=== PATIENT | male | born 1980 | race Caucasian/White ===

== ENCOUNTER → 2020-03-06 12:38 | Outpatient (BNVA) | payer OTHER, SELFPAY | PROVIDERS: PCP Internal Medicine; Visit Provider Physician Assistant Medical | DX: S00.431A Contusion of right ear, initial encounter (principal); W20.8XXA Other cause of strike by thrown, projected or falling object, initial encounter | CPT/HCPCS: 12002; 99203 ==

== ENCOUNTER → 2020-03-08 15:16 | Outpatient (BNVA) | payer OTHER, SELFPAY | PROVIDERS: PCP Internal Medicine; Visit Provider Internal Medicine | DX: S00.431A Contusion of right ear, initial encounter (principal); W20.8XXA Other cause of strike by thrown, projected or falling object, initial encounter | CPT/HCPCS: 99213 ==

== ENCOUNTER → 2020-03-12 15:25 | Outpatient (BNVA) | payer OTHER, SELFPAY | PROVIDERS: PCP Internal Medicine; Visit Provider Internal Medicine | DX: S01.311A Laceration without foreign body of right ear, initial encounter (principal); W20.8XXA Other cause of strike by thrown, projected or falling object, initial encounter | CPT/HCPCS: 99212; 99213 ==

== ENCOUNTER → 2020-07-12 14:18 | Outpatient (BNVA) | payer OTHER, SELFPAY | PROVIDERS: PCP Internal Medicine; Visit Provider Internal Medicine | DX: S63.502A Unspecified sprain of left wrist, initial encounter (principal); X50.1XXA Overexertion from prolonged static or awkward postures, initial encounter | CPT/HCPCS: 29125; 99202 ==

== ENCOUNTER → 2020-07-15 11:15 | Outpatient (BNVA) | payer OTHER, SELFPAY | PROVIDERS: PCP Internal Medicine; Visit Provider Physician Assistant | DX: S63.502A Unspecified sprain of left wrist, initial encounter (principal); X50.1XXA Overexertion from prolonged static or awkward postures, initial encounter | CPT/HCPCS: 99213 ==

== ENCOUNTER → 2020-10-31 11:29 | Outpatient (BNVA) | payer OTHER, SELFPAY | PROVIDERS: PCP Internal Medicine; Visit Provider Physician Assistant Medical | DX: S00.212A Abrasion of left eyelid and periocular area, initial encounter (principal); X58.XXXA Exposure to other specified factors, initial encounter | CPT/HCPCS: 92002; 99203 ==

== ENCOUNTER → 2020-11-01 09:31 | Outpatient (BNVA) | payer OTHER, SELFPAY | PROVIDERS: PCP Internal Medicine; Visit Provider Physician Assistant Medical | DX: S05.02XA Injury of conjunctiva and corneal abrasion without foreign body, left eye, initial encounter (principal); X58.XXXA Exposure to other specified factors, initial encounter | CPT/HCPCS: 99213 ==

== ENCOUNTER → 2021-01-02 07:49 | Outpatient (BNVA) | payer OTHER, SELFPAY | PROVIDERS: PCP Internal Medicine; Visit Provider Internal Medicine | DX: M23.91 Unspecified internal derangement of right knee (principal) | CPT/HCPCS: 99203 ==

== ENCOUNTER → 2023-09-10 08:30 | Outpatient (BNV) | payer OTHER, SELFPAY | PROVIDERS: Visit Provider Psychiatry & Neurology Psychiatry | DX: F33.9 Major depressive disorder, recurrent, unspecified (principal); F43.10 Post-traumatic stress disorder, unspecified; F10.90 Alcohol use, unspecified, uncomplicated | CPT/HCPCS: 90792; 99213 ==

== ENCOUNTER 2023-09-23 08:30 | Outpatient (RCR) | payer OTHER, SELFPAY ==
[2023-09-10 10:42] VITALS: BP 112/78; PULSE 80; TEMP 36.4; BMI 31.2
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
--- NOTE | 2023-09-21 22:12 | HO.PHPPROGNO ---
Subjective Subjective Date of Service: 09/21/23 Reason For Visit: PTSD,anxiety Interim History: Patient reports starting on Abilify and has been taking the whole tablet for the past 3 nights. Denies any adverse effects. Says he is doing a little better...things are better at home too . He indicates that he and his have been making progress. He still has difficult morning, especially with the irritability. He has been trying utilize skills to navigate stress. Sleep has been better he is getting 6-7 hours at night. Also notes that irritability also a little better. He notes difficulties focusing on tasks. Denies any SI. Medication Compliance: Yes Side effects from medications: No Attending Groups: Yes Review of Systems Acute medical concerns: No Mental Status Exam Mental Status Exam Narrative: Alert, oriented, in no acute distress. Calm, withdrawn but cooperative. No psychomotor agitation or neurovegetative retardation. Eye contact intermittent Mood depressed, affect constricted. Speech normal. Thought process linear, coherent. Thought content related to stressors, +transient hopelessness, +passive SI, denies any intention, urge or plan to harm self. Denies any aggressive ideation or HI. No paranoia or delusional content elicited. No evidence of psychosis. Insight and judgment fair. Diagnostics Vital Signs (24Hr): BMI result Body Mass Index 31.2 Assessment & Plan Assessment & Plan (1) MDD (major depressive disorder), recurrent episode: Status: Acute Code(s): F33.9 - Major depressive disorder, recurrent, unspecified (2) PTSD (post-traumatic stress disorder): Status: Acute Code(s): F43.10 - Post-traumatic stress disorder, unspecified (3) Alcohol use disorder: Status: Acute Code(s): F10.90 - Alcohol use, unspecified, uncomplicated Plan continue aripiprazole 2 mg qhs continue Vivitrol continue other regular medications? Routine lab work ordered EKG, routine for baseline QTc for medication considerations UDS as indicated MassPat reviewed Continue to monitor Patient educated on: diagnosis, medication risk/benefits and substance abuse Informed Consent: understands Reason for contiued partial hosp. stay Substantial Risk for: inability to function, rapid decompensation and med/psych decompensation Certification I certify that partial hospital treatment is medically necessary due to the symptoms and problems resulting from the patient's mental illness and the failure to treat the patient at the partial hospital level of care would likely result in the patient requiring inpatient psychiatric care which could not be prevented at a less intensive level of care. Total time managing care of this patient today __30__ minutes. Discharge Plan Discharge Attending provider: Kortney Baptiste Medications: New aripiprazole 2 mg tablet 2 mg PO BEDTIME Qty: 30 0RF No Action bupropion HCl 150 mg tablet sustained-release 12 hr 150 mg PO DAILY venlafaxine 75 mg capsule,extended release 24hr 225 mg PO DAILY Rx Instructions: Take 3 capsules daily. sildenafil 50 mg tablet 50 mg PO DAILY PRN (Reason: Erectile Dysfunction) Rx Instructions: Daily one hour prior to sexual activity. naltrexone 50 mg tablet 50 mg PO DAILY trazodone 100 mg tablet 100 mg PO BEDTIME PRN (Reason: Insomnia) prazosin 2 mg capsule 4 mg PO BEDTIME Rx Instructions: Take two tabs at Bedtime. For nightmares. Do not take nights you plan to use Sildenafil Citrate hydroxyzine pamoate 25 mg capsule 25 mg PO TID PRN (Reason: Anxiety) fluoride (sodium) 1.1 % cream See Rx Instructions .ROUTE .COMPLEX Rx Instructions: [place] small amount twice a day. Print Language: [place]
--- NOTE | 2023-09-23 16:42 | HO.PHP ---
During D/C meeting with Doroteo at 1:00pm, pt expressed improvement in his overall mood, stated he felt he learned many coping skills and received a lot of support. Pt however, scored a 15 on his PHQ-9 at discharge, not improving from the 15 he scored upon admission. Upon further analysis and discussion, 2 of the pt's areas of increased scores were new areas and several of his previous high scores in select areas had lowered. When asked about specific details in areas he scored a 3 on the PHQ-9 such as sleep, and concentration, pt needed extended time to process what was being asked, then needed clarification and then need extended time to think about his answer. When prompted with questions about a possible past head trauma, pt revealed a fall when in the , acknowledged he failed to mention it to [facility] doctor and to OP provider and stated he never told anyone when it happened as well, never assessed for head trauma or concussion per pt report, despite the fall being singificant and leaving him stunned, ears ringing and neck pain that was never the same . Pt was encouraged to stay longer at [facility] to explore these new details, pt declined but agreed to return to [facility] if he felt symptoms worsen and no improve as medication reaches therapeutic dose, pt agreed. Pt also stated he would discuss these concerns with his OP providers and PCP, and bring up recent thoughts of possible ADHD symptoms as well that pt stated he also forgot to ask Dr. Baptiste about. Pt has a PCP appt on Wednesday, junior copywriter recommended pt ask for brain imaging scans due to lack of improvement in his anger, depression, poor memory and difficulty focusing and processing. Pt asked junior copywriter to call his to inform her of this conversation with details so she can remind him due to his issues with memory. At roughly 1:30 pm junior copywriter called pt's Caryl Lovelace to inform her of Doroteo's discharge plan and discussion, per pt's request. Caryl was very supportive and also asked for clarification on doses for Doroteo's medication. Caryl was encouraged to discuss the medication discharge plan with Doroteo and review the paperwork with him when he arrives home. Caryl reported she attends his appts per his request and expressed similar concerns over his symptoms. Appreciative for being contacted.
--- NOTE | 2023-09-23 17:37 | HO.PHP ---
Referral faxed to [facility] for OP therapy on 09/23/23.
--- NOTE | 2023-09-23 21:26 | P.PNPSP_ITS ---
Subjective Subjective Date of Service: 09/23/23 Reason For Visit: PTSD,anxiety Interim History: Patient seen for follow-up, anticipating discharge at the end of program today.? Reports no acute issues or concerns. Medication compliant, medications well- tolerated. Denies any adverse effects.? Mood is depressed, but has been more level, he has been utilizing better coping skills.?He is better able to take a break if he feels triggered and feels more incontrol, denies any AI or HI or SI. More future-oriented. He says at some point in the upcoming months he may need a letter stating he is totally disabled and unable to work. I inform him that I can write a letter that he was at the program and that he attended and at this time he was unable to work due to severity of his symptoms, however as for a letter attesting to his mental status months from now he should follow up with his outpatient office messenger helper, who will be seeing him regularly, to inquire about this. He is unsure whether a participation letter would be helpful, but says if he needs a letter regarding his participation in [facility] [place] he agrees to reach out and leave a message. EMail:[email or web address]. He endorses transient hopelessness but denies thoughts of harming self or others at this time. Denies any aggressive ideation or HI. Denies any paranoia or AH or VH. Sleep, appetite, energy stable. Medication Compliance: Yes Side effects from medications: No Attending Groups: Yes Review of Systems Acute medical concerns: No Mental Status Exam Mental Status Exam Narrative: Alert, oriented, in no acute distress. Calm, withdrawn but cooperative. No psychomotor agitation or neurovegetative retardation. Eye contact intermittent Mood depressed, affect constricted. Speech normal. Thought process linear, coherent. Thought content related to stressors, +transient hopelessness, denies any suicidal intention, urge or plan to harm self. Denies any aggressive ideation or HI. No paranoia or delusional content elicited. No evidence of psychosis. Insight and judgment fair but adequate. Diagnostics Vital Signs (24Hr): BMI result Body Mass Index 31.2 Assessment & Plan Assessment & Plan (1) MDD (major depressive disorder), recurrent episode: Status: Acute Code(s): F33.9 - Major depressive disorder, recurrent, unspecified (2) PTSD (post-traumatic stress disorder): Status: Acute Code(s): F43.10 - Post-traumatic stress disorder, unspecified (3) Alcohol use disorder: Status: Acute Code(s): F10.90 - Alcohol use, unspecified, uncomplicated Plan Discharge from [facility] continue aripiprazole 3.5-5 mg qhs cotninue Wellbutrin XL 150 mg qam continue venlafaxine 150 mg qd continue trazodone 100 mg qhs PRN sleep continue prazosin 4 mg qhs continue hydroxyzine 25 mg TID prn anxiety continue Vivitrol continue other regular medications? Routine lab work ordered but patient did not get this completed Refills sent to pharmacy Will defer further medication management to outpatient provider *Safety plan reviewed *Discharge diagnoses, treatment course, discharge plan have been reviewed with patient (including medication regime, medication management, potential side effects) as well as treatment rationale were also revisited Patient educated on: diagnosis, medication risk/benefits and substance abuse Informed Consent: understands Reason for contiued partial hosp. stay Substantial Risk for: stable for discharge and med/psych decompensation Certification I certify that partial hospital treatment is medically necessary due to the symptoms and problems resulting from the patient's mental illness and the failure to treat the patient at the partial hospital level of care would likely result in the patient requiring inpatient psychiatric care which could not be prevented at a less intensive level of care. Total time managing care of this patient today ____ minutes. Discharge Plan Discharge Attending provider: Kortney Baptiste Medications: New aripiprazole 2 mg tablet 2 mg PO BEDTIME Qty: 30 0RF aripiprazole 5 mg tablet 5 mg PO BEDTIME Qty: 20 0RF Continued bupropion HCl 150 mg tablet sustained-release 12 hr 150 mg PO DAILY sildenafil 50 mg tablet 50 mg PO DAILY PRN (Reason: Erectile Dysfunction) Rx Instructions: Daily one hour prior to sexual activity. naltrexone 50 mg tablet 50 mg PO DAILY trazodone 100 mg tablet 100 mg PO BEDTIME PRN (Reason: Insomnia) prazosin 2 mg capsule 4 mg PO BEDTIME Rx Instructions: Take two tabs at Bedtime. For nightmares. Do not take nights you plan to use Sildenafil Citrate hydroxyzine pamoate 25 mg capsule 25 mg PO TID PRN (Reason: Anxiety) fluoride (sodium) 1.1 % cream See Rx Instructions .ROUTE .COMPLEX Rx Instructions: [place] small amount twice a day. Changed venlafaxine 75 mg capsule,extended release 24hr 150 mg PO DAILY Qty: 20 0RF Rx Instructions: Take 3 capsules daily. Stand Alone Forms: Patient Portal Discharge page Patient Education: Trazodone (By mouth), Aripiprazole (By mouth), Post Traumatic Stress Disorder (ED), Post Traumatic Stress Disorder (GEN) Print Language: Czech
--- NOTE | 2023-10-06 17:02 | HO.PHP ---
[employer] attempted to contact Caryl Lovelace, Doroteo Lovelace's , at 10am, in response to a voicemail left with questions about Doroteo's paperwork and follow-up care. Caryl did not respond, A voicemail was left.
== END 2023-09-23 23:59 | disposition home or self-care (01) ==
LOC: HO.PHPA 08:30
PROVIDERS: Visit Provider Psychiatry & Neurology Psychiatry
DX: F33.9 Major depressive disorder, recurrent, unspecified (principal); F43.10 Post-traumatic stress disorder, unspecified; F10.90 Alcohol use, unspecified, uncomplicated
CPT/HCPCS: 90791; 90853